=== PATIENT | male | born 1945 | race Caucasian/White ===

== ENCOUNTER → 2021-06-09 | Outpatient (CLI) | payer OTHER ==
--- NOTE | 2021-06-09 12:39 | CTL ---
EXAMINATION TYPE: CT Low Dose Lung DATE OF EXAM ORDERED: 06/09/2021 HISTORY: . Lung cancer screening CT DLP: 67.[address] CTDI: 1.8 mGy Automated exposure control for dose reduction was used. SCREENING VISIT: COMPARISON: None TECHNIQUE: Low dose computed tomography scan was performed through the chest at 1 mm thick sections a nd reconstructed images in the coronal plane at [address] DIAGNOSTIC QUALITY: Satisfactory FINDINGS: LUNG NODULES: There is a 4 mm nodule lateral margin left upper lobe. 2 mm nodule anterior segment left lung apex image #36. LUNGS: Emphysematous changes are seen. There is mild central and basilar bronchiectasis. Subsegmental areas of vague consolidation most typical of atelectasis correlate clinically. There is no pneumothorax. Mild biapical pleural thickening. Small segmental pleural-based calcificati on left upper lobe medially. Atherosclerotic change of the aorta and there is coronary artery vessels. Heart size is within normal limits. Hypertrophic and degenerative changes of the spine. IMPRESSION: 1. There is sub-5 mm pulmonary nodules too small to characterize. 2. COPD 3. Coronary artery calcification. CT LUNG RAD AND CT CHEST RECOMMENDATION: Lung-Rad 2 Benign Appearance or Behavior: Continue annual sc reening with LDCT in 12 months. S Modifier (other clinically significant findings): S
== END | disposition home or self-care (01) ==
LOC: RADCTMAIN 11:06
PROVIDERS: ATTEND Physician Assistant
DX: R91.1 Solitary pulmonary nodule (principal); J44.9 Chronic obstructive pulmonary disease, unspecified; I25.10 Atherosclerotic heart disease of native coronary artery without angina pectoris; Z87.891 Personal history of nicotine dependence
CPT/HCPCS: 71271

== ENCOUNTER → 2022-06-09 | Outpatient (CLI) | payer OTHER ==
--- NOTE | 2022-06-09 11:43 | CTL ---
EXAMINATION TYPE: CT Low Dose Lung DATE OF EXAM ORDERED: 06/09/2022 HISTORY: Z87.891 PERSONAL USE OF TOBACCO. Lung cancer screening CT DLP: 62.[address] CTDI: 1.6 mGy Automated exposure control for dose reduction was used. SCREENING VISIT: Follow-up. COMPARISON: CT low dose lung screening 06/09/2021. TECHNIQUE: Low dose computed tomography scan was performed through the chest at 1 mm thick sections a nd reconstructed images in multiple planes at 1 mm and [address] DIAGNOSTIC QUALITY: Satisfactory FINDINGS: LUNG NODULES: Stable 4 mm nodule along the lateral margin of the left upper lobe (series 4, image 84) . Stable 3 mm nodule along the left major fissure favored to represent intrafissural lymph node. Stab le punctate 2 mm calcified nodule within the left apex (series 4, image 40). No new or enlarging pulm onary nodules. LUNGS: COPD: Severity: Mild Fibrosis: Severity: None Lymph nodes: None Other findings: Mild central and basilar bronchiectasis. RIGHT PLEURAL SPACE: Effusion: None Calcification: None Thickening: Mild apical thickening. Pneumothorax: None LEFT PLEURAL SPACE: Effusion: None Calcification: Small segmental pleural-based calcification left upper lobe medially. Thickening: Mild apical thickening. Pneumothorax: None HEART: Heart Size: Normal Coronary Calcification: Moderate Pericardial Effusion: None OTHER FINDINGS: Upper abdomen: None Bony thorax: None Supraclavicular region: None Other: None IMPRESSION: * Stable pulmonary nodules measuring up to 4 mm. No new or enlarging pulmonary nodules. * COPD changes. * Coronary artery calcification. CT LUNG RAD AND CT CHEST RECOMMENDATION: Lung-Rad 2 Benign Appearance or Behavior: Continue annual sc reening with LDCT in 12 months. S Modifier (other clinically significant findings): S
== END | disposition home or self-care (01) ==
LOC: RADCTMAIN 10:58
PROVIDERS: ATTEND Physician Assistant
DX: Z12.2 Encounter for screening for malignant neoplasm of respiratory organs (principal); Z87.891 Personal history of nicotine dependence
CPT/HCPCS: 71271

== ENCOUNTER → 2023-09-09 | Outpatient (CLI) | payer OTHER ==
--- NOTE | 2023-09-11 19:56 | CTL ---
EXAMINATION TYPE: CT Low Dose Lung DATE OF EXAM ORDERED: 09/09/2023 HISTORY: 78-year-old male Z87.891, current smoker with 45 pack-year history. Lung cancer screening CT DLP: 59.[address] CTDI: 1.6 mGy Automated exposure control for dose reduction was used. SCREENING VISIT: Annual follow-up COMPARISON: 06/09/2022 TECHNIQUE: Low dose computed tomography scan was performed through the chest with coronal and sagitta l reconstructions.. CT DIAGNOSTIC QUALITY: Satisfactory FINDINGS: Heart is normal size without pericardial effusion. LAD and RCA coronary artery calcifications are pre sent. Aorta normal caliber with conventional arch was a branching anatomy. There appear to be fairly heavy atherosclerotic calcifications within the right axillary artery. Correlate for any right upper extre mity symptoms. No thoracic lymphadenopathy by CT size criteria. Moderate centrilobular emphysema. Moderate diffuse bronchial wall thickening. Mild biapical pleural-p arenchymal scarring. Strandy scarring or atelectasis at the left base, increased from prior exam. No consolidation or pleu ral effusion. * New/larger 5 mm subpleural pulmonary nodule lateral left upper lobe, axial image 81. * Stable groundglass 5 mm nodule lateral left lower lobe, axial image 197. * 4 mm pulmonary nodule along the left midlung, axial image 168 compatible with intrafissural lymph node, unchanged. Visualized upper abdomen shows moderate atherosclerotic calcifications continue into the abdominal ao rta. Bones: Stable superior plate deformity with anterior wedging of the L1 vertebral body and moderate an terior endplate spondylosis lower thoracic spine. IMPRESSION: 1. LungRADS Category 3 (probably benign, 1-2% chance of malignancy); a new 5 mm subpleural pulmonary nodule lateral left upper lobe. 2. Couple additional left-sided pulmonary nodules remain unchanged. 3. COPD with moderate emphysema. Recommend smoking cessation. 4. Fairly heavy calcified plaque within the right axillary artery. Correlate for any right upper extr emity vascular symptoms. CT LUNG RAD AND CT CHEST RECOMMENDATION: Lung-Rad 3 Probably Benign: 6 month follow-up LDCT. S Modifier (other clinically significant findings): S, atherosclerotic changes right axillary artery as above.
== END | disposition home or self-care (01) ==
LOC: RADCTMAIN 13:43
DX: Z12.2 Encounter for screening for malignant neoplasm of respiratory organs (principal); F17.210 Nicotine dependence, cigarettes, uncomplicated; J43.2 Centrilobular emphysema; R91.8 Other nonspecific abnormal finding of lung field
CPT/HCPCS: 71271

== ENCOUNTER → 2023-10-12 | Outpatient (CLI) | payer OTHER ==
--- NOTE | 2023-10-13 14:24 | US ---
EXAMINATION TYPE: 08/03/2017 DATE OF EXAM: 10/12/2023 2:39 PM CLINICAL INDICATION: Male, 78 years old with history of M79.621 PAIN IN RIGHT UPPER ARM; CT showed ri ght arm stenosis per patient. History of: Smoker: Yes Hypertension: No Diabetic: No TIA/CVA: No Previous Vascular Surgery: No CAD: No FL: No Vascular Ulcers: No Claudication: No Gangrene: No Doppler Waveforms: Right: Axillary: Biphasic Brachial: Multiphasic Radial: Multiphasic Ulnar: Monophasic Left: Radial: Multiphasic Ulnar: Monophasic Wrist Brachial Indices: Right: 1.0 Left: 1.0 IMPRESSION: Wrist brachial indices within normal limits bilaterally.
== END | disposition home or self-care (01) ==
LOC: RADUSWWP 13:27
DX: M79.621 Pain in right upper arm (principal)
CPT/HCPCS: 93922

== ENCOUNTER 2024-02-27 15:53 | Emergency (ER) | payer OTHER ==
[2024-02-27 16:50] VITALS: RESP 18
--- NOTE | 2024-02-27 16:52 | CT ---
EXAMINATION TYPE: CT brain weston wo con DATE OF EXAM: 02/27/2024 COMPARISON: Head CT dated 08/30/2012 HISTORY: pain after fall CT DLP: 1540 mGycm Automated exposure control for dose reduction was used. TECHNIQUE: CT scan of the head and cervical spine are performed without contrast. Findings: Head CT: Ventricles, basal cisterns and sulci over convexities within normal limits for the patient's age and there is no mass, mass effect or shift of midline structures. No abnormal density is seen throughout the brain parenchyma and there is no acute intra or extra-axia l hemorrhage. Posterior fossa including the brainstem, fourth ventricle and cerebellar pontine angles are grossly n ormal. The intraorbital contents appear normal and symmetric. Visualized paranasal sinuses are well aerated. The calvarium and soft tissues are intact. CT cervical spine: Craniovertebral junction relationships and prevertebral soft tissues are normal. The cervical vertebral segments are normal in height and alignment and there is no fracture subluxati on. There is moderate disc space narrowing, spondylosis and discogenic endplate changes at the C3-4 a nd C5-6 levels consistent with moderate degenerative disc disease. Facet joints are intact. There is moderate degeneration of the intervertebral joints in the mid and lower cervical spine. There is prom inent calcification of the ligamentum flavum at the C4-5 level. The bony cervical canal is widely patent and there is no bony encroachment of the neural foramina. The paraspinal soft tissues unremarkable. IMPRESSION: 1. Head CT: No acute bleed or mass effect. 2. CT cervical spine: No acute trauma. Degenerative changes as described above.
--- NOTE | 2024-02-27 17:03 | ED ---
General Adult HPI - General Chief complaint: Fall Stated complaint: Fall- Head injury Time Seen by Provider: 02/27/24 16:10 Source: patient, RN notes reviewed, old records reviewed Mode of arrival: EMS Limitations: no limitations - History of Present Illness Initial comments: This is a 78-year-old male who presents to the emergency department complaining that he fell back and hit the back of his head on the floor. Patient states he did not lose consciousness patient denies any neck pain. Patient denies any numbness or weakness. Patient denies any back pain patient has any chest pain patient has any other symptoms. Patient states he fell because he was pulling something out of a cardboard box and when it released his momentum threw them back onto the floor and he hit his head. - Related Data Allergies Allergy/AdvReac Type Severity Reaction Status Date / Time No Known Allergies Allergy Verified 02/27/24 16:11 Review of Systems ROS Statement: Those systems with pertinent positive or pertinent negative responses have been documented in the HPI. ROS Other: All systems not noted in ROS Statement are negative. Past Medical History Past Medical History: No Reported History History of Any Multi-Drug Resistant Organisms: None Reported Past Surgical History: No Surgical Hx Reported Past Psychological History: No Psychological Hx Reported Smoking Status: Current every day smoker Past Alcohol Use History: Daily Past Drug Use History: None Reported General Exam - General Exam Comments Initial Comments: GENERAL: Patient is well-developed and well-nourished. Patient is nontoxic and well- hydrated and is in mild distress. ENT: Neck is soft and supple. No significant lymphadenopathy is noted. Oropharynx is clear. Moist mucous membranes. Neck has full range of motion without eliciting any pain. Patient has a contusion to the occipital region of the scalp EYES: The sclera were anicteric and conjunctiva were pink and moist. Extraocular movements were intact and pupils were equal round and reactive to light. Eyelids were unremarkable. SKIN: Skin is clear with no lesions or rashes and otherwise unremarkable. NEUROLOGIC: Patient is alert and oriented x3. Cranial nerves II through XII are grossly intact. Motor and sensory are also intact. Normal speech, volume and content. Symmetrical smile. MUSCULOSKELETAL: Normal extremities with adequate strength and full range of motion. PSYCHIATRIC: Normal psychiatric evaluation. Limitations: no limitations Course Vital Signs 02/27/24 16:07 Temperature 98 F Pulse Rate 92 Respiratory 18 Rate Blood Pressure 176/79 O2 Sat by Pulse 98 Oximetry Medical Decision Making - Medical Decision Making Was pt. sent in by a medical professional or institution (JERONIMO Smallwood, [employer], urgent care, hospital, or [facility]...) When possible be specific @ -No Did you speak to anyone other than the patient for history (EMS, parent, family, police, friend...)? What history was obtained from this source @ -No Did you review nursing and triage notes (agree or disagree)? Why? @ -I reviewed and agree with nursing and triage notes Were old charts reviewed (outside hosp., previous admission, EMS record, old EKG, old radiological studies, urgent care reports/EKG's, [facility] records)? Report findings @ - Differential Diagnosis (chest pain, altered mental status, abdominal pain women, abdominal pain men, vaginal bleeding, weakness, fever, dyspnea, syncope, headach e, dizziness, GI bleed, back pain, seizure, CVA, palpatations, mental health, musculoskeletal)? @ -Skull fracture, laceration scalp, subdural, intraparenchymal hemorrhage, subarachnoid, cervical spine fracture, this is not an all-inclusive list X-rays interpreted by me (1pt min.). @ -None done CT interpreted by me (1pt min.). @ -CT of the brain and C-spine showed no acute abnormality U/S interpreted by me (1pt. min.). @ -None done What testing was considered but not performed or refused? (CT, X-rays, U/S, labs)? Why? @ -None What meds were considered but not given or refused? Why? @ -None Did you discuss the management of the patient with other professionals (professionals i.e. JERONIMO Smallwood, [employer], lab, RT, psych nurse, social worker aide, web operations manager, teacher, chief digital officer, family preservation caseworker)? Give summary @ -No Was smoking cessation discussed for >3mins.? @ -No Was critical care preformed (if so, how long)? @ -No Were there social determinants of health that impacted care today? How? (Homelessness, low income, unemployed, alcoholism, drug addiction, transportation, low edu. Level, literacy, decrease access to med. care, shelter, rehab)? @ -No Was there de-escalation of care discussed even if they declined (Discuss DNR or withdrawal of care, Hospice)? DNR status @ -No What co-morbidities impacted this encounter? (DM, HTN, Smoking, COPD, CAD, Cancer, CVA, ARF, Chemo, Hep., AIDS, mental health diagnosis, sleep apnea, morbid obesity)? @ -None Was patient admitted / discharged? Hospital course, mention meds given and route, prescriptions, significant lab abnormalities, going to OR and other pertinent info. @ -I went back and reevaluated the patient there was no laceration noted. Patient has contusion to the occipital region of the scalp. Patient denies headache patient has full range of motion of his neck patient has no numbness or weakness. Undiagnosed new problem with uncertain prognosis? @ -No Drug Therapy requiring intensive monitoring for toxicity (Heparin, Nitro, Insulin, Cardizem)? @ -No Were any procedures done? @ -No Diagnosis/symptom? @ -Fall Acute, or Chronic, or Acute on Chronic? @ -acute Uncomplicated (without systemic symptoms) or Complicated (systemic symptoms)? @ -Complicated Side effects of treatment? @ -No Exacerbation, Progression, or Severe Exacerbation? @ -No Poses a threat to life or bodily function? How? (Chest pain, [place], [place], pneumonia, PE, COPD, DKA, ARF, appy, cholecystitis, CVA, Diverticulitis, Homicidal, Suicidal, threat to staff... and all critical care pts) @ -No Diagnosis/symptom? @ -Scalp contusion Acute, or Chronic, or Acute on Chronic? @ -Acute Uncomplicated (without systemic symptoms) or Complicated (systemic symptoms)? @ -Complicated Side effects of treatment? @ -None Exacerbation, Progression, or Severe Exacerbation] @ -No Poses a threat to life or bodily function? @ -No Disposition Clinical Impression: Fall, Scalp contusion Disposition: HOME SELF-CARE Condition: Good Instructions (If sedation given, give patient instructions): Fall Prevention (ED), Contusion in Adults (ED) Is patient prescribed a controlled substance at d/c from ED?: No Referrals: [facility],Clinic [Primary Care Provider] - 1-2 days Time of Disposition: 17:06
[2024-02-27 18:12] VITALS: BP 150/68; PULSE 86; TEMP 97.9
== END 2024-02-27 17:39 | disposition home or self-care (01) ==
LOC: EC 15:53
DX: S00.03XA Contusion of scalp, initial encounter (principal); F17.200 Nicotine dependence, unspecified, uncomplicated; W18.39XA Other fall on same level, initial encounter
CPT/HCPCS: 70450; 72125; 99284

== ENCOUNTER → 2024-04-03 | Outpatient (CLI) | payer OTHER ==
--- NOTE | 2024-04-10 01:24 | CT ---
EXAMINATION TYPE: CT chest wo con CT DLP: 161.7 mGycm, Automated exposure control for dose reduction was used. DATE OF EXAM: 04/03/2024 2:21 PM COMPARISON: CT low-dose lung 09/09/2023 . CLINICAL INDICATION:Male, 78 years old with history of R91.8 OTHER NONSPECIFIC ABNORMAL FINDING OF ANDRÉS NG F; PHH, abnormal findings of lung field TECHNIQUE: Multiple axial images were obtained through the chest. Sagittal and coronal reformats were created for review. Contrast used: mL of (None if empty) Oral contrast used: (None if empty) FINDINGS: LUNGS/ PLEURA: Redemonstration of moderate to severe pulmonary emphysematous changes and scattered ar eas of scarring/cystic changes. Previously seen 5 mm subpleural nodular density in the left upper lobe is redemonstrated image 20 and is unchanged. A 5 mm groundglass nodule in the lateral left lower lobe is stable, image 44. Tiny int rafissural lymph node on left is also stable. No new or enlarging nodules or masses of concern are identified. There is no consolidation, pleural e ffusion, or pneumothorax. AIRWAY: Central airways are patent. LOWER NECK: No significant findings. MEDIASTINUM: No enlarged nodes by CT size criteria. HEART: Normal heart size. Moderate coronary artery calcification and/or stents. No appreciable perica rdial effusion. VASCULATURE: Moderate to severe atherosclerotic calcifications of the aorta and branches. Ascending aorta is 2.9 CM, descending is 2.4 CM. Pulmonary trunk measures 2.4 CM. Pulmonary trunk is normal in size. Vessels otherwise not further assessed without contrast. SOFT TISSUES/LYMPH NODES: Mild bilateral gynecomastia changes. No axillary adenopathy. UPPER ABDOMEN: No acute or concerning abnormality. MUSCULOSKELETAL: No acute osseous abnormalities. Mild to moderate disc degeneration changes are prese nt throughout the thoracolumbar spine. At L1 there is mild to moderate compression deformity with sma ll marginal Schmorl's node along its superior endplate, appearance and alignment unchanged since 08/24. IMPRESSION: Overall stable exam as described. No acute abnormality in the chest.
== END | disposition home or self-care (01) ==
LOC: RADCTMAIN 13:42
PROVIDERS: ATTEND Family Medicine
DX: R91.8 Other nonspecific abnormal finding of lung field (principal)
CPT/HCPCS: 71250

== ENCOUNTER → 2025-04-04 | Outpatient (CLI) | payer OTHER ==
--- NOTE | 2025-04-04 11:42 | CTL ---
EXAMINATION TYPE: CT Low Dose Lung DATE OF EXAM: 04/04/2025 11:10 AM COMPARISON: None. CLINICAL INDICATION: Male, 79 years old with history of F17.210 nicotine dependence; Current smoker 1 ppd x 50 years, history of tobacco use. TECHNIQUE: Multiple axial non-contrast scans were obtained from approximately the lung apices through the upper abdomen. Coronal and sagittal reformatted images were obtained. Low dose technique was uti lized. MIP were created on a separate workstation and submitted for review. CT DLP: 74.3 mGycm, Automated exposure control for dose reduction was used. CT Contrast: Contrast used: None Oral contrast used: None FINDINGS: Lack of intravenous contrast and low dose technique limits the evaluation of the vascular and soft ti ssue structures. LUNGS: No evidence of pulmonary fibrosis. No evidence of focal consolidation, pneumothorax or pleural effusion. Centrilobular emphysema changes. Nodules: RUL: None. RML: None. RLL: None. DE: 4 mm series 5 image 18, stable LLL: None. AIRWAY: Patent and unremarkable. HEART: Size within normal limits. No significant coronary artery calcifications. MEDIASTINUM: No gross evidence of adenopathy. VASCULATURE: Atherosclerotic calcifications are present throughout the aorta and its branches. MUSCULOSKELETAL: No acute osseous abnormalities, stable compression deformity to the L1 vertebral bod y with up to 25-50% height loss. SOFT TISSUES/LYMPH NODES: Unremarkable. LOWER NECK: No significant findings. UPPER ABDOMEN: No significant findings. IMPRESSION: 1. No clinically significant pulmonary nodules. 2. Mild emphysema. CT LUNG RAD AND CT CHEST RECOMMENDATION: Lung-Rad 2 Benign Appearance or Behavior: Continue annual sc reening with LDCT in 12 months. S Modifier (other clinically significant findings): None Recommend smoking cessation (if current smoker), or continuation of smoking cessation (if prior smoke r). Annual screening for lung cancer with low-dose computed tomography is recommended in adults ages 55 to 77 years who have a 30 pack-year smoking history and currently smoke or have quit within the pa st 15 years. Screening should be discontinued once a person has not smoked for 15 years or develops a health problem that substantially limits life expectancy or the ability or willingness to have curat kandi lung surgery. Lung rads 2021 [email or web address] [email or web address], , 04/04/2025 11:39 AM
== END | disposition home or self-care (01) ==
LOC: RADCTMAIN 10:35
PROVIDERS: ATTEND Internal Medicine Pulmonary Disease
DX: Z12.2 Encounter for screening for malignant neoplasm of respiratory organs (principal); F17.210 Nicotine dependence, cigarettes, uncomplicated; J43.2 Centrilobular emphysema
CPT/HCPCS: 71271